=== PATIENT | female | born 1970 | race African-American/Black ===

== ENCOUNTER 2023-01-06 10:43 | Emergency (ER) | payer SELFPAY ==
[2023-01-06] MEDS ORDERED: Metoclopramide HCl 10 MG/2 ML VIAL ONE ×2 (12:03→12:07)
[2023-01-06] MEDS ORDERED: diphenhydrAMINE 50 MG/ML VIAL ONE ×2 (12:03→12:07)
[2023-01-06] MEDS ORDERED: Ketorolac Tromethamine 30 MG/ML VIAL ONE (12:43)
[2023-01-06] MEDS ORDERED: Lidocaine 4% Cream 5 GM TUBE w/ Tegaderm ONE (13:00)
== END 2023-01-06 15:47 | disposition home or self-care (01) ==
LOC: ERS 10:43
DX: R51.9 Headache, unspecified (principal); I10 Essential (primary) hypertension; E78.5 Hyperlipidemia, unspecified; Z79.84 Long term (current) use of oral hypoglycemic drugs; Z79.899 Other long term (current) drug therapy
CPT/HCPCS: 96365; 96372; 96375; J1200; J1885; J2765

== ENCOUNTER 2023-11-15 08:07 | Emergency (ER) | payer OTHER, SELFPAY ==
[2023-11-15] MEDS ORDERED: Ketorolac Tromethamine 30 MG (1 mL) VIAL ONE (08:29)
== END 2023-11-15 08:53 | disposition home or self-care (01) ==
LOC: ERS 08:07
DX: S96.912A Strain of unspecified muscle and tendon at ankle and foot level, left foot, initial encounter (principal); S96.911A Strain of unspecified muscle and tendon at ankle and foot level, right foot, initial encounter; S39.012A Strain of muscle, fascia and tendon of lower back, initial encounter; I10 Essential (primary) hypertension; E78.5 Hyperlipidemia, unspecified; V89.2XXA Person injured in unspecified motor-vehicle accident, traffic, initial encounter; Z79.899 Other long term (current) drug therapy
CPT/HCPCS: 96372; 99283; J1885